=== PATIENT | male | born 1995 | race Hispanic/Latino ===

== ENCOUNTER 2023-04-21 03:42 | Emergency (ER) | payer SELFPAY ==
[2023-04-21 03:44] VITALS: BP 139/92
--- NOTE | 2023-04-21 04:23 | ED.GENMED ---
History of Present Illness
General
Chief Complaint: Fainting/Passed Out
Source: patient
Exam Limitations: none
Time Seen by Provider: 04/21/23 04:03
Nursing documentation reviewed up to this point in time: agreed with
Travel History
Have you had any contact with someone who has COVID-19?: No
Do you have any symptoms of coronavirus? Fever > 100 degrees, chills, cough, shortness of breath, sore throat, loss of taste or smell, muscle aches, or headache?: No
History of Present Illness
History of Present Illness:
Pleasant 27-year-old male who presents with syncopal episode. He states that he woke up having the urge to go to the bathroom. He reports that he started to urinate and fell on the floor striking his head and his nose. Denies any other injury.
He does remember the event. He did briefly lose consciousness
Past History
Past History
ED Past Medical History: GERD
ED Past Surgical History: None
Social History
Tobacco: Non-smoker
Alcohol: Occasional
Personal: Single
Living: with family
Employment: Employed
Review of Systems
Review of Systems
All Other Systems: ROS reviewed and negative except as documented in HPI and ROS
Constitutional: Reports no symptoms
EENT: Reports other (Epistaxis)
Respiratory: Reports no symptoms
Cardiac: Reports no symptoms
ABD/GI: Reports no symptoms
: Reports no symptoms
Musculoskeletal: Reports no symptoms
Skin: Reports no symptoms
Neurological: Reports no symptoms
Endocrine: Reports no symptoms
Hematologic/Lymphatic: Reports no symptoms
Psychiatric: Reports anxiety
Phy Exam
General Physical Exam
General Presentation: well appearing and no apparent distress
General Skin: warm and dry
General Habitus: normal
General Mental: alert
General Hydration: appears well hydrated
ENT Exam
ENT Exam: TM's normal and neck supple
Additional ENT: Nasal deformity with dried blood in both nares
Eye Exam
Eye Exam: PERRL, cornea clear and conjunctiva normal
Cardiovascular Exam
Cardiovascular Exam: regular rate/rhythm, no edema, no murmur and normal peripheral pulses
Pulmonary Exam
Pulmonary Exam: lungs clear, no respiratory distress, no rales, no crackles, no rhonchi, no stridor, no wheezing and no cough
Gastrointestinal Exam
Gastrointestinal Exam: normal bowel sounds, non tender, soft, no organomegaly, no pulsatile mass and non distended
Neurological Exam
Neurological Exam: alert, oriented x3, no motor deficits and speech normal
Musculoskeletal Exam
Musculoskeletal Exam: full ROM and no edema
Skin Exam
Skin Exam: normal color, warm/dry, no rash and no petechia
Psychiatric Exam
Psychiatric Exam: normal mood/affect
Course
Orders/Labs/Results
Orders:
Orders
04/21/23 03:58
CT Facial Bones W/o Iv Contras Urgent
Comment:
Reason For Exam: fall/ facial deformity
04/21/23 03:59
CT Head W/o Iv Contrast Urgent
Comment:
Reason For Exam: fall/head injury
Vital Signs
Initial and Last Documented VS:
Initial Vital Signs
Temp Pulse Resp BP Pulse Ox
98.5 F 87 20 139/92 94
04/21/23 03:44 04/21/23 03:44 04/21/23 03:44 04/21/23 03:44 04/21/23 03:44
Last Documented Vital Signs
Temp Pulse Resp BP Pulse Ox
98.5 F 87 20 139/92 94
04/21/23 03:44 04/21/23 03:44 04/21/23 03:44 04/21/23 03:44 04/21/23 03:44
*Critical Care Note
Total Time (30-74mins, 75-104mins- exclusive of procedures): Not Applicable
Update Note
Update Note:
IMPRESSION:
CT HEAD:
No acute intracranial hemorrhage. No evidence of acute infarct.
No calvarial fracture.
No mass effect or midline shift.
Ventricles are normal without hydrocephalus.
CT FACIAL BONES:
Minimally displaced bilateral nasal bone fractures. Fracture of the anterior nasal septum . Blood in the nasal cavity. No orbital fracture
Moderate nasal soft tissue swelling.
There is scattered paranasal sinus mucosal thickening.
Spoke with oral maxillofacial surgery who recommended that we speak to ENT. Spoke with Dr. Анна Zavala, ENT who will come in to see the patient and possibly drain the septal hematoma
ED Attending Note
-
Portions of this chart may have been created with voice recognition software.� Occasional wrong word or��sound alike� substitutions may have occurred due to the inherent limitations of voice recognition software.
Discharge Plan
Departure
Patient Disposition: Home (Routine Discharge)
Date of Disposition: 04/21/23
Time of Disposition: 05:58
Patient with high blood pressure during this ER visit?: Yes
Condition: Good
Discharge Problem:
Fracture closed, nasal bone, Closed fracture of nasal septum
Instructions: Nose fracture, BLOOD PRESSURE
Referrals:
Yovani Davis MD [Active] -
Samara Fuller DDS [Active] - Next open appointment
NONE,* [Family Provider] -
Activity Restrictions/Additional Instructions:
It was a pleasure meeting you and taking part in your care. We hope for your continued healing and wellness.
Please read discharge instructions in their entirety. However, they are for general education and may not describe your exact diagnosis at discharge. Information on your ER visit and medical conditions were discussed with you along with appropriate
follow up information...
If indicated, please take your medications as instructed and indicated on discharge paperwork.
Please schedule a follow up appointment as directed. Call to schedule an appointment
Please return to the emergency department with ANY change in, persisting, or worsening of symptoms. If any of your symptoms do not improve, or persist, or become more severe within 6-12 hours, please return to the emergency department for further
care.
Please return to the emergency department if you develop a headache, neck pain/stiffness, fever greater than 100.4F, chest pain, shortness of breath, persistent nausea, vomiting, slurred speech, difficulty walking, numbness/tingling, weakness, signs
of infection or any other symptoms that are worrisome to you.
If you have any questions or concerns please do not hesitate to call the Hospital at or E-mail me directly at [email or web address]
Interventions
Interventions:
*Risk Screen - Suicide Last Done: 04/21/23 03:44
*General Assessment Last Done: 04/21/23 03:44
*Neglect/Abuse Screening Last Done: 04/21/23 03:44
ED- Fall Risk Assessment Last Done: 04/21/23 03:44
*ED COVID-19 Vaccine History Last Done: 04/21/23 03:44
ED- Cardiac Assessment Last Done: 04/21/23 05:20
ED- Neurological Assessment Last Done: 04/21/23 05:20
[2023-04-21] MEDS: PERCOCET 5/325 1 TABLET PO (06:28)
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
[2023-04-21 09:18] VITALS: BP 147/85
== END 2023-04-21 09:21 | disposition home or self-care (01) ==
LOC: EMR 03:42
PROVIDERS: EMERGENCY PHYSICIAN Student in an Organized Health Care Education/Training Program
DX: S02.2XXA Fracture of nasal bones, initial encounter for closed fracture (principal); W19.XXXA Unspecified fall, initial encounter; R03.0 Elevated blood-pressure reading, without diagnosis of hypertension
CPT/HCPCS: 99284; 70450; 70486

== ENCOUNTER → 2023-05-09 09:49 | Outpatient (REF) | payer OTHER, SELFPAY ==
[2023-05-09 11:33] LABS: Hemoglobin 14.3 g/dL (13.0-18.0); Mean Corpuscular Hgb 29.2 pg (27.0-31.0); Mean Corpuscular Volume 85.7 fL (80.0-94.0); Mean Platelet Volume 9.7 fL (7.4-10.4); Platelet Count 324 10^3/uL (130-400); Red Cell Dist. Width 12.7 % (11.5-14.5); White Blood Cell Count 8.2 10^3/uL (4.8-10.8)
[2023-05-09 12:24] LABS: TSH Reflex To Free T4 2.06 uIU/ml (0.47-4.68)
[2023-05-09 13:49] LABS: ALT (SGPT) 36 U/L (0-50); AST (SGOT) 35 U/L (17-59); Albumin 4.5 g/dl (3.5-5.0); Alkaline Phosphatase 85 U/L (38-126); Blood Urea Nitrogen 13 mg/dl (9-20); Calcium 9.2 mg/dl (8.4-10.2); Carbon Dioxide 28 mmol/L (22-30); Chloride 99 mmol/L (98-107); Glucose 84 mg/dl (70-99); Potassium 4.6 mmol/L (3.5-5.1); Sodium 136 mmol/L (135-145); Total Bilirubin 0.4 mg/dl (0.2-1.3); Total Protein 7.9 g/dl (6.3-8.2); eGFR > 60.00
== END ==
LOC: RCS 09:49
PROVIDERS: ATTENDING PHYSICIAN Nurse Practitioner Adult Health
DX: R55 Syncope and collapse (principal)
CPT/HCPCS: 36415; 80053; 84443; 85027; 93005

== ENCOUNTER → 2023-06-22 06:15 | Day surgery (SDC) | payer OTHER, SELFPAY ==
[2023-06-22] VITALS (15 sets, daily range): BP systolic 130–140; BP diastolic 80–93; BMI 35.3
[2023-06-22] MEDS: NORMOSOL-R 1000 IV (07:57)
== END ==
LOC: SDS 06:15
PROVIDERS: ATTENDING PHYSICIAN Otolaryngology
DX: J34.2 Deviated nasal septum (principal); S02.2XXA Fracture of nasal bones, initial encounter for closed fracture; W01.0XXA Fall on same level from slipping, tripping and stumbling without subsequent striking against object, initial encounter; J34.89 Other specified disorders of nose and nasal sinuses; J34.3 Hypertrophy of nasal turbinates
CPT/HCPCS: 30520; 30140; 88300

== ENCOUNTER → 2023-07-26 | Outpatient (REF) | payer OTHER, SELFPAY | LOC: DHSLP | PROVIDERS: ATTENDING PHYSICIAN Otolaryngology | DX: G47.33 Obstructive sleep apnea (adult) (pediatric) (principal) | CPT/HCPCS: 95811 ==

== ENCOUNTER 2024-11-01 15:13 | Outpatient (RCR) | payer OTHER, SELFPAY | END 2024-11-01 23:59 | disposition home or self-care (01) | LOC: RPT 15:13 | PROVIDERS: ATTENDING PHYSICIAN Student in an Organized Health Care Education/Training Program | DX: G82.20 Paraplegia, unspecified (principal); Z73.6 Limitation of activities due to disability; R26.89 Other abnormalities of gait and mobility | CPT/HCPCS: 97110; 97162 ==

== ENCOUNTER 2024-11-06 19:13 | Emergency (ER) | payer SELFPAY ==
[2024-11-06 19:16] VITALS: BP 131/78
[2024-11-06 19:37] LABS: Hematocrit 42.1 % (39.0-52.0); Hemoglobin 14.3 g/dL (13.0-18.0); Mean Corp Hgb Conc. 34.0 g/dL (33.0-37.0); Mean Corpuscular Volume 84.2 fL (80.0-94.0); Nucleated Red Blood Cells % 0 % (-); Platelet Count 287 10^3/uL (130-400); Red Cell Dist. Width 12.3 % (11.5-14.5)
[2024-11-06 20:02] LABS: ALT (SGPT) 39 U/L (0-50); AST (SGOT) 31 U/L (17-59); Albumin 4.4 g/dl (3.5-5.0); Alkaline Phosphatase 94 U/L (38-126); Blood Urea Nitrogen 12 mg/dl (9-20); Calcium 9.3 mg/dl (8.4-10.2); Carbon Dioxide 30 mmol/L (22-30); Chloride 101 mmol/L (98-107); Glucose 103 mg/dl (70-99); Potassium 4.2 mmol/L (3.5-5.1); Sodium 138 mmol/L (135-145); Total Protein 7.7 g/dl (6.3-8.2); eGFR > 60.00
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
[2024-11-06 22:58] LABS: Urine Character Clear (Clear)
[2024-11-06 23:00] LABS: Lipase 109 U/L (23-300)
[2024-11-06 23:03] LABS: Urine Squamous Cell >30 /LPF (Few)
[2024-11-07 00:31] VITALS: BP 120/70
[2024-11-07 02:31] VITALS: BP 114/65
== END 2024-11-07 02:32 | disposition home or self-care (01) ==
LOC: EMR 19:13
PROVIDERS: Emergency Medicine; EMERGENCY PHYSICIAN Emergency Medicine; FAMILY PHYSICIAN Student in an Organized Health Care Education/Training Program
DX: R10.30 Lower abdominal pain, unspecified (principal); R25.3 Fasciculation; G82.20 Paraplegia, unspecified; N48.89 Other specified disorders of penis
CPT/HCPCS: 99284; 74177; 80053; 81003; 81015; 83690; 85025; 87086; Q9967